=== PATIENT | male | born 1970 | race Caucasian/White ===

== ENCOUNTER 2024-04-07 12:28 | Emergency (ER) | payer OTHER, SELFPAY ==
--- NOTE | ~2024-04-07 | XR_ITS ---
EXAMINATION: XR WRIST, LEFT CLINICAL INFORMATION: Pain, injury COMPARISON: None available. TECHNIQUE: PA, lateral, and oblique views of the left wrist. FINDINGS: Acute or subacute, comminuted minimally impacted left distal radial metaphyseal fracture with probable intra-articular extension into the radiocarpal joint. Neutral lateral distal radial alignment. No evidence of dislocation. Mild widening of the scapholunate interval. Severe joint space narrowing with subchondral sclerosis, osteophytosis and cystic change about the first carpometacarpal joint, with adjacent heterotopic ossification or intra-articular bodies. Moderate diffuse wrist soft tissue swelling. XR/XR wrist LT min 3V IMPRESSION: 1. Acute or subacute, comminuted minimally impacted left distal radial metaphyseal fracture with probable intra-articular extension into the radiocarpal joint. 2. Mild widening of the scapholunate interval, may reflect underlying ligamentous injury. 3. Severe first carpometacarpal joint osteoarthritis. Electronically signed by: Jaleel Garcia MD 04/07/2024 03:08 PM EDT
[2024-04-07 12:47] VITALS: BP 143/97; PULSE 82; RESP 18; TEMP 36.3; O2SAT 97; BMI 29.7
--- NOTE | 2024-04-07 12:47 | ED.GENADULT ---
HPI - General Adult General Chief complaint: Extremity Injury, Upper Stated complaint: L wrist inj Time Seen by Provider: 04/07/24 14:52 Source: patient Mode of arrival: ambulatory Limitations: no limitations History of Present Illness ED Provider: Nanette Daigle PA-C HPI narrative: Patient is a 53 year old assigned male at with no reported medical history presenting to the emergency department today with left wrist pain. Patient states that yesterday while walking with a pallet tulio at work he tripped and fell backwards, using his left out stretched hand to catch himself. Patient denies any head strike, loss of consciousness, dizziness, lightheadedness, abdominal pain, nausea, vomiting, fever, chills, blurry vision, double vision, loss of vision, chest pain, difficulty breathing, shortness of breath, back pain, night sweats, pain with urination, increased urinary frequency, increased urinary urgency, blood in his urine or stool, syncope or a near syncopal episode, bowel incontinence, bladder incontinence, or any other complaints at this time. Onset (ago): day(s) (1) Location: left and upper extremity Severity: mild Relieving factors: none Exacerbating factors: none Associated symptoms: denies other symptoms Treatments prior to arrival: none Related Data Allergies Allergy/AdvReac Type Severity Reaction Status Date / Time clonazepam [CLONAZEPAM] Allergy Unknown UNK Verified 04/07/24 12:49 Review of Systems Constitutional: Constitutional: Reports no additional constitutional complaints, Denies chills, Denies fever(s) and Denies night sweats Eyes: Eyes: Reports no additional eye complaints, Denies blurry vision, Denies change in vision, Denies diplopia, Denies eye discharge, Denies loss of vision and Denies eye pain ENT: Denies dizziness Cardiovascular: Cardiovascular: Reports no additional cardiovascular complaints, Denies chest pain, Denies lightheadedness, Denies Loss of Consciousness and Denies dyspnea Respiratory: Respiratory: Reports no additional respiratory complaints and Denies dyspnea Gastrointestinal: Gastrointestinal: Reports no additional gastrointestinal complaints, Denies abdominal pain, Denies melena, Denies hematochezia, Denies change in bowel habits and Denies change in stool character Genitourinary: Genitourinary: Reports no additional male genitourinary complaints, Denies hematuria, Denies oliguria, Denies difficulty urinating, Denies dysuria, Denies urinary frequency, Denies urinary hesitancy, Denies urinary incontinence and Denies urinary urgency Musculoskeletal: Musculoskeletal: Reports no additional musculoskeletal complaints, Denies numbness and Denies tingling Comments: left wrist pain Neurologic: Denies dizziness, Denies loss of vision, Denies numbness and Denies tingling Psychiatric: Psychiatric: Reports no additional psychiatric complaints Endocrine: Endocrine: Reports no additional endocrine complaints Hematologic/Lymphatic: Hematologic/Lymphatic: Reports no additional hematologic/lymphatic complaints Allergic/Immunologic: Allergic/Immunologic: Reports no additional allergic/immunologic complaints [facility] Past Medical History Attestation statement: The following information was validated with the patient. Source: old records reviewed and nursing notes reviewed Social History Social History Advance Directives: No Advance Directives Information Provided: No Physical Exam ED Vital Signs: Vital Signs - 24 hr 04/07/24 12:47 04/07/24 15:01 04/07/24 15:36 Temperature 97.3 F 97.8 F 97.8 F Pulse Rate 82 74 74 Respiratory Rate 18 18 18 Blood Pressure 143/97 H 138/97 H 138/97 H Pulse Oximetry 97 99 99 Oxygen Delivery Method Room Air Room Air Room Air BMI result Body Mass Index 29.7 Const General: cooperative, no acute distress, alert and awake Nutritional Appearance: well nourished Orientation/consciousness: patient oriented x3 Limitations: no limitations HENMT Head: Yes normal to inspection and Yes atraumatic Ears: hearing grossly normal bilaterally and external ears normal General nose exam: Normal external nose present, no nasal discharge noted and no epistaxis Face and sinus: Yes normal facial exam, No abrasion and No laceration Mouth: Normal oral and palatal mucosa present, no drooling and no muffled voice Eyes General: appearance normal, both eyes and all related structures Periorbital: periorbital findings normal Eyelids: Yes eyelids normal Conjunctivae: conjunctivae normal Pupils: Equal, round and reactive pupils present EOM: EOMs intact bilaterally Neck Neck: Yes normal visual inspection, Yes full ROM and Yes no lymphadenopathy Chest Chest palpation & inspection: normal inspection of the chest Resp Effort & Inspection: normal respiratory effort and able to speak in complete sentences GI Inspection: Yes normal to inspection Neuro General: patient oriented x3 and moves all extremities Cranial nerves: Yes Equal, round and reactive pupils present Cognition (Neuro): normal cognition Extrem Other: pain with left wrist ROM left wrist swelling General: Yes capillary refill normal Psych Appearance: grossly normal Mental Status: mental status grossly normal Affect: normal affect Attitude: cooperative Thought process: Normal thought process present Thought content: Normal thought content present Insight: Good insight present (Psych) Course Course Course Narrative: RME performed by Nanette Daigle PA-C. Patient is a 53 year old assigned male at presenting to the emergency department with left wrist pain. Patient states he fell backwards while pulling a pallet tulio and braced himself with an outstretched left wrist. Detailed physical exam and review of systems are deferred to the solder making supervisor. Imaging ordered. Patient placed back in the waiting room pending room availability and results. Procedures Orthopedic Splinting/Casting Injury #1: Side: left Upper Extremity Injury Location: wrist Upper Extremity Immobilizer: sling/shoulder immobilizer and sugar tong splint Medical Decision Making Medical Decision Making MDM Narrative: Patient is a 53 year old assigned male at with no reported medical history presenting to the emergency department today with left wrist pain. Patient's physical exam was as noted in the physical exam portion of this note. Patient's left wrist x-ray showed an acute comminuted minimally impacted left distal radial metaphyseal fracture with probable intra-articular extension into the radiocarpal joint. I placed the patient in a sugar tong splint, without incident. Patient's PMS was intact prior to and after splint placement. Patient's splinted arm was placed in a sling for ease of ambulation without incident. I spoke to the orthopedic team who agreed with management and urgent outpatient follow up. I explained my physical exam findings as well as all test results to the patient. I answered all questions asked by the patient. I stressed the importance of the patient taking his medication as directed (either prescribed or as the over the counter packaging recommends). I stressed the importance of the patient following up with his primary care provider, the orthopedic provider, and work connection. I stressed the importance of the patient returning to the emergency department immediately if his symptoms were to worsen or if he were to develop any dizziness, shortness of breath, difficulty breathing, chest pain, blurry vision, loss of vision, nausea, vomiting, abdominal pain, fever, chills, back pain, or any other complaints. Patient verbalized agreement and understanding with this treatment plan and discharge. Differential Diagnosis Differential Diagnoses: The differential diagnosis associated with the presentation includes Wrist fracture Wrist sprain Wrist strain Admission/Observation Consideration of admission/observation: Escalation of care including admission/observation considered Patient would have been admitted to the hospital had his work up had any findings where hospital admission was appropriate and his clinical presentation warranted hospital admission. Consult Healthcare Provider Management of the patient was discussed with: Director Process (spoke to the orthopedic team as noted in the MDM Rationale portion of this note.) Independent Interpretation I performed an independent interpretation of an: Plain X-Ray Interpretation: My interpretation is in agreement with the radiologist's impression of this imaging study. EXAMINATION: XR WRIST, LEFT CLINICAL INFORMATION: Pain, injury COMPARISON: None available. TECHNIQUE: PA, lateral, and oblique views of the left wrist. FINDINGS: Acute or subacute, comminuted minimally impacted left distal radial metaphyseal fracture with probable intra-articular extension into the radiocarpal joint. Neutral lateral distal radial alignment. No evidence of dislocation. Mild widening of the scapholunate interval. Severe joint space narrowing with subchondral sclerosis, osteophytosis and cystic change about the first carpometacarpal joint, with adjacent heterotopic ossification or intra-articular bodies. Moderate diffuse wrist soft tissue swelling. XR/XR wrist LT min 3V IMPRESSION: 1. Acute or subacute, comminuted minimally impacted left distal radial metaphyseal fracture with probable intra-articular extension into the radiocarpal joint. 2. Mild widening of the scapholunate interval, may reflect underlying ligamentous injury. 3. Severe first carpometacarpal joint osteoarthritis. Electronically signed by: Jaleel Garcia MD 04/07/2024 03:08 PM EDT Dictated By: Jaleel Garcia MD Signed By: Electronically signed by Jaleel Garcia MD 04/07/24 6123 Radiology Impression Discussion of test interpretation with radiology: I have reviewed the radiologist's reading. Discharge Plan Discharge Clinical Impression: Fracture of wrist Patient Disposition: Home, Self-Care Instructions: Wrist Fracture in Adults (ED) Additional Instructions: Do NOT get the splint wet. Do NOT remove the splint. If the sensation in your fingers changes (numbness, tingling, cold, warm), you may loosen the outer JAZZ wraps. If you find yourself loosening the JAZZ wraps to the point of seeing the white portions of the splint - STOP and return to the ER. Follow up with your primary care provider and an orthopedic provider. Given this is a work place injury, you should follow up with work connection. Return to the emergency department immediately if your symptoms worsen or if you develop any dizziness, shortness of breath, difficulty breathing, chest pain, blurry vision, loss of vision, nausea, vomiting, abdominal pain, fever, chills, back pain, or any other complaints. Referrals: [facility] [Provider Group] (Call to establish and follow up with a primary care provider. If you already have a primary care provider, please follow up with them.) [facility] [Provider Group] (Call to establish and follow up with a primary care provider. If you already have a primary care provider, please follow up with them.) [facility] [Provider Group] (Call to establish and follow up with a primary care provider. If you already have a primary care provider, please follow up with them.) [facility] [Provider Group] (Call to establish and follow up with an orthopedic provider. ) [facility] [Provider Group] (Given this was a work place injury, please be sure to follow up with work connection. ) Stand Alone Forms: Work/School Release Interventions: ED Discharge Assessment Last Done: 04/07/24 15:36 Discharge Date/Time: 04/07/24 15:37 Print Language: Indian
[2024-04-07 15:01] VITALS: BP 138/97; PULSE 74; RESP 18; TEMP 36.6; O2SAT 99
[2024-04-07 15:36] VITALS: BP 138/97; PULSE 74; RESP 18; TEMP 36.6; O2SAT 99
== END 2024-04-07 15:37 | disposition home or self-care (01) ==
LOC: HO.ED 15:35
PROVIDERS: Emergency Provider Emergency Medicine Emergency Medical Services
DX: S52.572A Other intraarticular fracture of lower end of left radius, initial encounter for closed fracture (principal); W01.0XXA Fall on same level from slipping, tripping and stumbling without subsequent striking against object, initial encounter; Y93.89 Activity, other specified; Y92.9 Unspecified place or not applicable; Y99.9 Unspecified external cause status
CPT/HCPCS: 29125; 73110; 99283

== ENCOUNTER 2024-04-10 14:48 | Outpatient (REF) | payer OTHER, SELFPAY ==
--- NOTE | ~2024-04-10 | XR_ITS ---
EXAMINATION: XR WRIST, LEFT CLINICAL INFORMATION: Pain in the left wrist COMPARISON: X-rays of the left wrist April 07, 2024. TECHNIQUE: PA, lateral, and oblique views of the left wrist. FINDINGS: Mildly displaced distal radius fracture with intra-articular extension unchanged in appearance and alignment. Severe osteoarthritis of the 1st carpometacarpal joint unchanged. Large osseous fragment noted adjacent to the radial aspect of the joint compatible with loose body or fractured osteophyte. Remaining bones joints and soft tissues unremarkable. XR/XR wrist LT w scaphoid IMPRESSION: 1. Distal radius fracture unchanged in appearance and alignment. 2. Severe osteoarthritis of the 1st carpometacarpal joint unchanged. Electronically signed by: Romeo Schwarz MD 04/25/2024 07:23 AM EDT
== END 2024-04-10 14:49 | disposition home or self-care (01) ==
LOC: HO.HOSX 14:48
PROVIDERS: Visit Provider Orthopaedic Surgery
DX: M25.532 Pain in left wrist (principal); S52.502A Unspecified fracture of the lower end of left radius, initial encounter for closed fracture; R20.0 Anesthesia of skin; R20.2 Paresthesia of skin
CPT/HCPCS: 73110; 99202

== ENCOUNTER 2024-04-10 15:22 | Outpatient (AMB) | payer OTHER, SELFPAY ==
--- NOTE | 2024-04-10 15:48 | MHC.OFFVIS ---
Vital Signs 04/10/24 15:50 Height 5 ft 5 in Weight 178 lb 5 oz BMI 29.7 Intake Visit Reasons: FC-Left wrist facture Intake Note: Miguel is a 53 year old right hand dominant male who presents today for a Worker's Compensation related ED evaluation s/p left distal radial metaphyseal fracture, DOI 04/06/24. Patient states while walking with a pallet tulio at work he tripped and fell backwards, using his left outstretched hand to catch himself. Patient denies numbness, tingling, and locking on fingers. Patient describes pain as crampy . Reports taking Motrin for pain with some relief. Denies prior injuries or surgeries to the left hand. Patient dropped off a form to be filled out. He reports [employer], one of his employers, is able to accommodate light duty. Allergies clonazepam [CLONAZEPAM] Allergy (Unknown, Verified 04/10/24 15:51) UNK HPI HPI FC-Left wrist facture: Details: Miguel is a 53 year old right hand dominant man who presents for a left distal radius fracture, S/P trip & fall while at work, DOI: 04/06/24. He was seen in the ED on 04/07/24 and placed in a sugar-tong splint with sling. This is a work-place injury. He says he is doing fair, with some pain in his wrist. he manages his pain with Motrin. He also complains of some intermittent numbness in his thumb, index, and middle fingers, which was not present prior to his injury He works at [employer]. He says [employer] can accommodate light duty if needed. He denies any other health concerns. 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 [employer] Review of Systems Const All systems reviewed & are unremarkable except as noted in HPI and below Physical Exam Vital Signs: BMI result Body Mass Index 29.7 Const General: cooperative, healthy appearing and no acute distress Orientation/consciousness: patient oriented x3 HEENT Head: Yes normocephalic and Yes atraumatic Eyes EOM: EOMs intact bilaterally Resp Effort & Inspection: normal respiratory effort and able to speak in complete sentences Cardio Jugular venous distension: no JVD Skin General skin exam: turgor normal Rashes: no rashes Neuro General: patient oriented x3 Extrem Other: Evaluation of Left Upper Extremity: The patient is alert, oriented, and in no acute distress Neuro: Median, Ulnar, Radial nerves motor and sensory intact and sensation is normal to the tips of all digits today in clinic. He has intermittent numbness in the median nerve distribution depending on the position of his hand & wrist today in clinic Vascular: Cap refill brisk ROM: He can weakly bring his fingers closed to a fist and back into extension He does have tenderness and swelling about the distal radius. No pain with elbow ROM No elbow tenderness No tenderness with proximal forearm squeeze No tenderness along the length of the ulna Skin: No lacerations or abrasions. General: Swelling & ecchymosis about the wrist Radiographs: 3 views of the left wrist, plus a scaphoid view, were taken and viewed by me today in clinic. they show a distal radius fracture with comminution. There is a transverse metaphyseal component and then there is a longitudinal fracture line extending to the articular surface best seen on the lateral view, also seen on the oblique view. He is at 12 degrees of dorsal tilt on the lateral view. There is also some widening of the scapholunate interval. He also has severe basal joint osteoarthritis with joint space narrowing, osteophyte formation, and subchondral sclerosis. Psych Appearance: grossly normal Affect: normal affect Attitude: cooperative Assessment & Plan Assessment & Plan (1) Fracture of left distal radius: Code(s): S52.502A - Unspecified fracture of the lower end of left radius, initial encounter for closed fracture Category: Medical (2) Numbness and tingling in left hand: Code(s): R20.0 - Anesthesia of skin; R20.2 - Paresthesia of skin Category: Medical Plan Assessment & Plan: 1. Left distal radius fracture, comminuted an intra articular With a transverse metaphyseal component and a longitudinal fracture line extending to the articular surface, with ~12 degrees dorsal tilt seen on lateral view From a fall, DOI: 04/06/24 This is a workplace injury 2. Left hand numbness In the median nerve distribution Symptoms intermittent but daily, since his fall on 04/06/24 I educated him about this condition I discussed operative and non-operative treatment options I recommend surgery, and he is in agreement He was fitted for a fiberglass splint today to wear like a cast until his DOS, and I explained the importance of maintaining his left wrist at or above heart level He was given a note for work to remain out of work at this time. The risks and benefits of operative treatment were discussed with the patient and the patient wishes to proceed with surgery. These risks include, but are not limited to risk of damage to blood vessels, nerves, tendons, infection, recurrence, incomplete relief of preoperative symptoms, persistent pain, possible need for further surgery and the risks associated with regional blocks and anesthesia. The plan is to take the patient to the operating room sometime on 04/12/24 for the following procedures: 1. Left distal radius ORIF, under general 2. Left carpal tunnel release, under general All of the preoperative paperwork including the consent was reviewed today. All the patient's questions were answered. The patient understands that they will be contacted by our rn outpatient surgery soon to schedule this procedure He denies Diabetes, blood thinners, asthma, heart, lung, kidney issues Please note that greater than 30 minutes was spent with this patient going over the history, evaluating the patient and radiographs, formulating possible treatment options, discussing them with the patient, and documenting the visit. Scribed for Winnie Guzmán MD by Sebastian Silva, medical fee clerk, on 04/10/24 at 4:15 PM, EST. Orders: Orders XR wrist LT w scaphoid Today M25.532 - Pain in left wrist Coding Level of Care Code New Pt Level 4 (87944) Diagnoses Fracture of left distal radius S52.502A Numbness and tingling in left hand R20.0; R20.2
[2024-04-10 15:50] VITALS: BMI 29.7
== END 2024-04-10 16:54 | disposition home or self-care (01) ==
PROVIDERS: Visit Provider Orthopaedic Surgery
DX: S52.502A Unspecified fracture of the lower end of left radius, initial encounter for closed fracture (principal); Z04.2 Encounter for examination and observation following work accident
CPT/HCPCS: 99204

== ENCOUNTER 2024-04-12 05:36 | Day surgery (SDC) | payer OTHER, SELFPAY ==
--- NOTE | 2024-04-11 13:41 | HO.ANESPROP2 ---
Documented by User: Jennifer Samuels NP 04/11/24 13:41 HPI - Anesthesia Eval Consult details Narrative: 53yo M for Left Radius Distal Fracture ORIF, Carpal Tunnel Release PMFSH Active Problems Active Problems: All Active Problems Numbness and tingling in left hand (Acute) Fracture of left distal radius (Acute) Social History Social History Patient Tobacco Use Status: Current everyday Tobacco user Tobacco use type: Cigarette Cigarettes Per Day: 3 Use of substances other than those prescribed or required for medical reasons: No Are you DNR?: No Advance Directives: No Advance Directives Information Provided: Yes Advance Directives on File: No Recently lost weight without trying: No Nutrition Risks: No Nutritional Risk Poor oral hygiene: No Current occupational status: employed 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 Meds Allergies Allergy/AdvReac Type Severity Reaction Status Date / Time clonazepam [CLONAZEPAM] Allergy Unknown UNK Verified 04/10/24 15:51 Home Medications ?Medication ?Instructions ?Recorded ?Confirmed ?Last Taken ?Type hydroxyzine pamoate 25 mg capsule 25 - 50 mg PO BID PRN panic attack 04/10/24 Unknown History Assessment and Plan Assessment Anesthesia Assessment: Chart Reviewed Documented by User: Mary Prado MD 04/12/24 09:49 PMFSH Active Problems Active Problems: All Active Problems Numbness and tingling in left hand (Acute) Fracture of left distal radius (Acute) H/o ETOH/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 Smoker Family History Family history of problems with anesthesia: No Surgical History History of Problems with Anesthesia: No Social History Social History Patient Tobacco Use Status: Current everyday Tobacco user Tobacco use type: Cigarette Cigarettes Per Day: 3 Use of substances other than those prescribed or required for medical reasons: No Are you DNR?: No Advance Directives: No Advance Directives Information Provided: Yes Advance Directives on File: No Recently lost weight without trying: No Nutrition Risks: No Nutritional Risk Poor oral hygiene: No Current occupational status: employed Current occupation: rt handed, cantu and sales service coordinator Meds Allergies Allergy/AdvReac Type Severity Reaction Status Date / Time clonazepam [CLONAZEPAM] Allergy Unknown UNK Verified 04/10/24 15:51 Home Medications ?Medication ?Instructions ?Recorded ?Confirmed ?Last Taken ?Type hydroxyzine pamoate 25 mg capsule 25 - 50 mg PO BID PRN panic attack 04/10/24 Unknown History Exam Height,Weight and Vital Signs: Height 5 ft 6 in Weight 79.832 kg Vital Signs Temp Pulse Resp BP Pulse Ox O2 Del Method 04/12/24 06:38 97.9 F 81 16 115/76 97 Room Air Airway Mallampati Class: II TM Dist: >3cm Neck ROM: Full Loose/Missing/Broken Teeth: Yes (Many broken, some missing teeth. Denies loose teeth) Heart: RRR Lungs: CTAB Assessment and Plan Assessment Anesthesia Assessment: Anesthesia Plan Discussed and Chart Reviewed Final Anesthetic Review Family History of Problems with Anesthesia: No History of Problems with Anesthesia: No NPO: Yes ASA Class: II Final Preanesthetic Review: No Changes in Pt Med Stat, Meds/Allgs Chart Reviewed, Consent Obtained/Reviewed and Anes Risks/Benef Reviewed Patient Risk: Low Procedure Risk: Low Assessment/Block/Sedation in SS: Assess/Block/Sedation-SS Anesthetic Plan Anesthetic Plan: GA and Regional Block (Left brachial plexus block) Disposition: Standard PACU
--- NOTE | ~2024-04-12 | FL_ITS ---
EXAMINATION: FLUOROSCOPY GUIDANCE FOR NEEDLE PLACEMENT CLINICAL INFORMATION: ORIF left distal radius. COMPARISON: None available. TECHNIQUE: 4 images and fluoroscopy were provided to Dr. Winnie Guzmán. FINDINGS: 4 images demonstrate distal radial ORIF. FLUOROSCOPY TIME: 26.88 seconds. DOSE AREA PRODUCT: 0.9450 mGy. FL/FL guidance in OR IMPRESSION: Fluoroscopic guidance provided during distal radial ORIF. Electronically signed by: Eren Arredondo MD 04/12/2024 04:16 PM EDT
[2024-04-12 06:36] VITALS: BMI 28.4
[2024-04-12 06:38] VITALS: BP 115/76; PULSE 81; RESP 16; TEMP 36.6; O2SAT 97
[2024-04-12] MEDS: Lactated Ringers 1,000 ML 100 ML IVCONT (06:49)
--- NOTE | 2024-04-12 07:37 | MHC.SHP ---
Pre-Procedural Eval Section A - 24 Hr Update-Section A only Date of Service: 04/12/24 The patient is an INPATIENT: No Changes since office visit: No Cold of Flu in the past 2 weeks, No New Medical Problems, No Changes in Medication and No Patient answered all questions The patient has been examined within 24 hours of the surgical procedure. The History & Physical has been completed within 30 days and I have reviewed it.: Yes Section B - Complete if H&P > 30 days Chief Complaint: fx lower end of radius,carpal tunnel Allergies: Allergies Allergy/AdvReac Type Severity Reaction Status Date / Time clonazepam [CLONAZEPAM] Allergy Unknown UNK Verified 04/10/24 15:51 Plan I have reviewed the history and physical and performed a pertinent physical examination on my patient. No changes have occurred unless specified. Time Spent With Patient Time: Total time managing care of this patient today ____ minutes.
--- NOTE | 2024-04-12 07:38 | W.PM.OPN ---
Operative Note Operative Note Date of Service: 04/12/24 Narrative: Operative Note Narrative: Preop diagnosis: 1. Left Distal radius fracture 2. Left carpal tunnel syndrome Postop diagnosis: Same Procedure: 1. Left Distal radius fracture open reduction internal fixation, extra-articular 2. Left carpal tunnel release Surgeon: Winnie Guzmán MD [employer] Supervisor: Emanuel CHANG Anesthesia: General anesthesia plus regional block Findings: Left distal radius fracture Implants: A 3 hole Accu Med volar locking plate, with 5 X 2.3 mm locking pegs/screws, and 3 3.5 mm cortical screws Tourniquet time: 71 minutes EBL: 5.0 ml Specimen: None Drains: None Complications: None Disposition: Brought to the recovery room in stable condition Plan: Follow-up in 10-14 days for wound check, suture removal and postop radiographs The patient will be placed in either a short-arm cast or a volar wrist splint. Encouraged no lifting of anything heavier than a cell phone. Please encourage active and passive range of motion of the digits. Follow-up at 4-5 weeks postop for repeat radiographs. Indications: The patient is a 53 year old man with left distal radius fracture with carpal tunnel syndrome . The risks and benefits of operative treatment, including but not limited to risk of damage to blood vessels, nerves, tendons, infection, recurrence, persistent pain or numbness, incomplete resolution of preoperative symptoms, or need for further surgery were discussed with the patient and they wished to proceed with surgery. Procedure: Once consent was obtained patient was brought back to the operating suite and placed in the operating table in a supine position. A regional block was performed by the anesthesia team. Perioperative antibiotics and anesthesia was administered by the anesthesia team. A tourniquet was applied to the proximal aspect of the left upper extremity and the limb was prepped and draped in a standard surgical fashion. The limb was elevated exsanguinated with Esmarch bandage and the tourniquet inflated to 250 mm of mercury for a total tourniquet time of 71 minutes. The FluoroScan was used throughout the case to assess our reduction, and facilitate implant placement. A gentle closed reduction was 1st performed on the patient's left distal radius fracture. Was assessed radiographically before proceeding with the reduction internal fixation. I then made an 8 cm longitudinal incision over the distal aspect of the flexor carpi radialis tendon. The incision was made through the skin to the subcutaneous tissue using a 15. Blade. Then carefully dissected down to flexor carpi radialis tendon she tenotomy scissors. The FCR tendon sheath was then incised longitudinally using tenotomy scissors under direct visualization. The FCR tendon was then retracted ulnarly. I then made a longitudinal incision in the volar forearm fascia through the floor of FCR tendon sheath using tenotomy scissors under direct visualization. I identified the interval between the radial artery and the flexor tendons. This interval was developed further with my index finger, releasing some of the muscular fibers of the flexor pollicis longus. A dull weatlander retractor was then placed. I then created an ulnarly based flap of the pronator quadratus by releasing the radial and distal edges using a 15. Blade. A Rizzo elevator was used to elevate the pronator quadratus from the volar surface of the distal radius. This then revealed to us our distal radius fracture. An open reduction was then performed on our distal radius fracture. I then placed a short narrow 3 hole Accu Med volar locking plate on the volar surface of the distal radius. I placed a single K-wire through the distal aspect of the plate and into the distal radius. This was assessed using fluoroscopic images. I was satisfied with the placement of our plate. I then placed 5 X 2.3 mm locking screws/pegs in the distal aspect of the plate and distal radius by 1st drilling bicortically with a 1.8 mm drill bit, measuring with a depth gauge, and placing the appropriate length locking screws/pegs. The placement of our plate and screws was then assessed again using fluoroscopic images. The once satisfied with the placement of the volar locking plate and screws on the distal aspect of the distal radius, the plate was then reduced to the shaft of the radius. I then placed 3 3.5 mm cortical screws to the proximal aspect of the plate and into the shaft of the radius. This was done by 1st drilling bicortically with a 2.8 mm drill bit, measuring with a depth gauge, and placing the appropriate length screw. Final radiographs were then obtained. The DRUJ was assessed and found to be stable on exam. I was satisfied with our reduction and placement of all implants. At this point the wound was irrigated with normal saline. The pronator quadratus was reduced back over the volar locking plate using some 3-0 Vicryl suture material. The tourniquet was then deflated and hemostasis was obtained with a brief period of local pressure and bipolar monopolar electrocautery. The subcutaneous layer was then reapproximated using some 4-0 Vicryl suture, and the skin edges were reapproximated using some 5 0 Prolene suture. The wound was then infiltrated with some 1% lidocaine with epinephrine postop pain control. A sterile dressing and a short dorsal splint allowing for active flexion and extension of the digits was applied. The patient appears to have tolerated the procedure well and with no complications. All digits were well vascularized conclusion of the case.
[2024-04-12 10:15] VITALS: BP 125/80; PULSE 87; RESP 18; TEMP 36.2; O2SAT 98
[2024-04-12 10:20] VITALS: BP 128/85; PULSE 91; RESP 18; O2SAT 97
[2024-04-12 10:25] VITALS: BP 133/88; PULSE 86; RESP 18; O2SAT 97
[2024-04-12 10:30] VITALS: BP 128/96; PULSE 99; RESP 18; O2SAT 98
[2024-04-12 10:45] VITALS: BP 138/95; PULSE 80; RESP 18; O2SAT 98
== END 2024-04-12 11:34 | disposition home or self-care (01) ==
PROVIDERS: Visit Provider Orthopaedic Surgery
PROC: (CPT 25607; principal; 2024-04-12 07:30)
PROC: (CPT 64721; 2024-04-12 07:30)
DX: S52.502A Unspecified fracture of the lower end of left radius, initial encounter for closed fracture (principal); M25.532 Pain in left wrist; W01.0XXA Fall on same level from slipping, tripping and stumbling without subsequent striking against object, initial encounter; Y93.89 Activity, other specified; Y92.69 Other specified industrial and construction area as the place of occurrence of the external cause; Y99.0 Civilian activity done for income or pay; G56.02 Carpal tunnel syndrome, left upper limb; R20.0 Anesthesia of skin; Z79.899 Other long term (current) drug therapy; Z88.8 Allergy status to other drugs, medicaments and biological substances; F17.210 Nicotine dependence, cigarettes, uncomplicated
CPT/HCPCS: 25607; 64721; C1713; J0131; J0330; J0665; J0690; J1100; J1596; J2250; J2405; J2704; J2795; J3010

== ENCOUNTER → 2024-04-12 05:36 | Outpatient (BNV) | payer OTHER, SELFPAY | PROVIDERS: Visit Provider Orthopaedic Surgery | DX: S52.502A Unspecified fracture of the lower end of left radius, initial encounter for closed fracture (principal); G56.02 Carpal tunnel syndrome, left upper limb | CPT/HCPCS: 25607; 64721 ==

== ENCOUNTER 2024-04-25 14:00 | Outpatient (REF) | payer OTHER, SELFPAY ==
--- NOTE | ~2024-04-25 | XR_ITS ---
EXAMINATION: XR WRIST, LEFT CLINICAL INFORMATION: M25.532 - Pain in left wrist COMPARISON: 04/10/2024, 04/07/2024. TECHNIQUE: Four views of the left wrist. FINDINGS: Redemonstration of comminuted distal radial intra-articular fracture, which has been fixated with plate and screws involving the radial volar aspect. Hardware appears well seated in anatomical alignment without complication or loosening. Anatomic alignment of the fracture has been restored with reduction in previously seen mild dorsal angulation. No articular step-off is noted. Fracture lines appear mildly blunted and sclerotic, indicating healing. Severe erosive arthritic changes present at the first CMC joint, with moderate arthritic changes at the STT joints. Soft tissue swelling has improved. XR/XR wrist LT w scaphoid IMPRESSION: 1. Fixated comminuted distal radial intra-articular fracture, with mormonism of anatomic alignment, with no complication seen. 2. Severe erosive arthrosis first CMC joint. 3. Mildly improved soft tissue swelling. Electronically signed by: Alexandre Esquivel MD 07/03/2024 10:25 AM DEB
== END 2024-04-25 14:01 | disposition home or self-care (01) ==
LOC: HO.HOSX 14:00
DX: M25.532 Pain in left wrist (principal); S52.502A Unspecified fracture of the lower end of left radius, initial encounter for closed fracture; R20.0 Anesthesia of skin; R20.2 Paresthesia of skin
CPT/HCPCS: 73110; 99212

== ENCOUNTER → 2024-04-25 14:04 | Outpatient (BNV) | payer OTHER, SELFPAY | PROVIDERS: Visit Provider Radiology Diagnostic Radiology | DX: S52.572A Other intraarticular fracture of lower end of left radius, initial encounter for closed fracture (principal) | CPT/HCPCS: 73110 ==

== ENCOUNTER 2024-04-25 14:31 | Outpatient (AMB) | payer OTHER, SELFPAY ==
--- NOTE | 2024-04-25 14:34 | A.OFFVIS_ITS ---
Vital Signs 04/25/24 14:42 Height 5 ft 5 in Weight 170 lb BMI 28.3 Handedness Ambidextrous Intake Visit Reasons: PO LT distal radius/CTR 04/12/24 AR Intake Note: Miguel is a 53 year old ambidextrous male who presents today post operatively s/p Left Distal radius ORIF & Left carpal tunnel release, DOS: 04/12/24 w/ Dr Guzmán. Patient reports he hasn't been able to move his left hand much so he has not noticed much pain. He says his finger fell a bit stiff. He has mild tingling in all his digits in left hand that comes and goes. He reports his arm wakes him up in the morning due to pain so he takes Motrin at that time and before dinner, this provides relief. Patient needs work note. He is asking about work status and restrictions. Allergies clonazepam [CLONAZEPAM] Allergy (Unknown, Verified 04/25/24 14:43) UNK HPI HPI PO LT distal radius/CTR 04/12/24 AR: Details: Patient is a 53-year-old male who presents for postoperative evaluation status post left distal radius ORIF and carpal tunnel release, DOS 04/12/2024. Today, the patient reports that he is feeling well, it is not experiencing any pain at this time. The patient also reports that the numbness and tingling in his left hand has completely resolved. Of note, the patient reports that when he was getting x-rays and he saw the incision site when the cast was removed, he began to feel lightheaded, so he was brought over in a wheelchair. The patient reports that he is able to make a closed fist without difficulty. Patient has no other acute complaints or concerns at this time. 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 Neuro: Normal sensation of the tips of all digits of the left hand at this time Vascular: Cap refill brisk Pain: Patient reports no tenderness to palpation about the left wrist or hand ROM: Patient is able to make a closed fist and extend all digits of the left hand without difficulty Skin: Well approximated and well healing incision site noted on the volar aspect of the left wrist No evidence of infection General: No ecchymosis, erythema, or evidence of infection. Psych: Appears grossly normal Affect normal Attitude cooperative Results Reviewed Results Reviewed: X-rays obtained in the office today and independently reviewed by me, Emanuel Antony PA-C, demonstrate well approximated fracture of the left distal radius with orthopedic hardware in place and in satisfactory clinical alignment. Assessment & Plan Assessment & Plan (1) Numbness and tingling in left hand: Code(s): R20.0 - Anesthesia of skin; R20.2 - Paresthesia of skin Category: Medical (2) Fracture of left distal radius: Code(s): S52.502A - Unspecified fracture of the lower end of left radius, initial encounter for closed fracture Category: Medical Plan 1. Left distal radius fracture status post open reduction internal fixation 2. Left carpal tunnel syndrome status post carpal tunnel release DOS 04/12/2024 Patient appears to be recovering well postoperatively Patient is educated about the typical recovery course At this time, placed in a short-arm cast to allow for healing of the L distal radius Patient is educated on proper cast care and precautions Sutures removed, Steri-Strips applied Patient will be on light duty at work with a strict 2 lb weight restriction in his left hand for at least a further 2 weeks, likely longer Patient is amenable to this plan Patient will follow-up in 2 weeks with repeat x-rays, sooner with any acute concerns Orders: Orders XR wrist LT w scaphoid Today M25.532 - Pain in left wrist Coding Level of Care Code Global (84199) Diagnoses Numbness and tingling in left hand R20.0; R20.2 Fracture of left distal radius S52.502A
[2024-04-25 14:42] VITALS: BMI 28.3
== END 2024-04-25 15:45 | disposition home or self-care (01) ==
LOC: HO.HOS 14:31
DX: R20.0 Anesthesia of skin (principal); R20.2 Paresthesia of skin; S52.502A Unspecified fracture of the lower end of left radius, initial encounter for closed fracture
CPT/HCPCS: 99024

== ENCOUNTER 2024-05-09 10:39 | Outpatient (REF) | payer OTHER, SELFPAY ==
--- NOTE | ~2024-05-09 | XR_ITS ---
EXAMINATION: XR WRIST, LEFT CLINICAL INFORMATION: M25.532 - Pain in left wrist COMPARISON: None available. TECHNIQUE: PA, lateral, and oblique views of the left wrist. FINDINGS: Redemonstration of comminuted distal radial intra-articular fracture, which has been fixated with plate and screws involving the radial volar aspect. Hardware appears well seated in anatomical alignment without complication or loosening. Anatomic alignment of the fracture remains. No articular step-off is noted. Fracture lines are still seen but appear continually mildly blunted and sclerotic, indicating healing. Severe erosive arthritic changes present at the first CMC joint, with moderate arthritic changes at the STT joints. Soft tissue swelling has improved. XR/XR wrist LT min 3V IMPRESSION: 1. Fixated comminuted distal radial intra-articular fracture, with catholic of anatomic alignment, with no complication seen. Continued interval subtle findings of healing. 2. Severe erosive arthrosis first CMC joint. 3. Resolution of soft tissue swelling. Electronically signed by: Alexandre Esquivel MD 07/03/2024 10:32 AM DEB
== END 2024-05-09 10:40 | disposition home or self-care (01) ==
LOC: HO.HOSX 10:39
DX: M25.532 Pain in left wrist (principal); S52.502D Unspecified fracture of the lower end of left radius, subsequent encounter for closed fracture with routine healing; Z98.890 Other specified postprocedural states
CPT/HCPCS: 73110; 99212

== ENCOUNTER 2024-05-09 14:26 | Outpatient (AMB) | payer OTHER, SELFPAY ==
--- NOTE | 2024-05-09 15:03 | MHC.OFFVIS ---
Vital Signs 05/09/24 15:06 Height 5 ft 5 in Weight 170 lb BMI 28.3 Handedness Ambidextrous Intake Visit Reasons: PO LT distal radius/CTR 04/12/24 AR-w/xray Intake Note: Miguel is a 53 year old ambidextrous male who presents today post operatively s/p Left Distal radius ORIF & Left carpal tunnel release, DOS: 04/12/24 w/ Dr Guzmán. Patient reports he has mild numbness around the base of his thumb. He expresses his left wrist feels tight. He denies pain at this time of his visit. Allergies clonazepam [CLONAZEPAM] Allergy (Unknown, Verified 05/09/24 15:05) UNK HPI HPI PO LT distal radius/CTR 04/12/24 AR-w/xray: Details: Patient is a 54-year-old male who presents for postoperative evaluation status post left distal radius ORIF and carpal tunnel release, DOS 04/12/[address] Guzmán. Today, the patient reports he is feeling well, and is not experiencing any pain at baseline. However, the patient does report that he has attempted gentle range of motion with his left wrist since being out of the cast in the office today, and states that he is very tight in his left wrist with both flexion and extension. Patient reports that he does still have some numbness and tingling on the radial aspect of the wrist moving up towards the base of the thumb, but does not have any numbness or tingling in the digits of the left hand. No other acute complaints or concerns at this time. [facility] Social History Patient Tobacco Use Status: Current everyday Tobacco user Tobacco use type: Cigarette Cigarettes Per Day: 3 Current occupational status: employed Current occupation: rt handed, [employer] and solar energy sales specialist Review of Systems Const All systems reviewed & are unremarkable except as noted in HPI and below Physical Exam Vital Signs: BMI result Body Mass Index 28.3 Extrem Other: Patient is alert, oriented, and in no acute distress. Neuro: Normal sensation of the tips of all digits of the left hand at this time Vascular: Cap refill brisk Pain: Patient reports no tenderness to palpation about the left wrist or hand ROM: Patient is able to make a closed fist and extend all digits of the left hand without difficulty However, gentle flexion extension left wrist are both significantly limited due to stiffness Skin: Well approximated and well healing incision site noted on the volar aspect of the left wrist No evidence of infection General: No ecchymosis, erythema, or evidence of infection. Psych: Appears grossly normal Affect normal Attitude cooperative Results Reviewed Results Reviewed: X-rays obtained in the office today and independently reviewed by me, Emanuel Antony PA-C, demonstrate well approximated fracture of the left distal radius with orthopedic hardware in place and in satisfactory clinical alignment. Assessment & Plan Assessment & Plan (1) Fracture of left distal radius: Code(s): S52.502A - Unspecified fracture of the lower end of left radius, initial encounter for closed fracture Category: Medical Plan 1. Left distal radius fracture status post ORIF DOS 04/12/2024 Patient appears to be recovering well postoperatively Patient is educated about the typical recovery course At this time, patient was removed from a cast and placed into a Velcro wrist splint to be worn with daytime activities Patient is advised that when he is at home or resting, he should be out of the splint for most of the time and working on gentle range of motion of the left wrist and hand Patient is informed that he may have damaged some of the superficial nerves of the left wrist with his injury ordering surgery, and that this numbness he is experiencing in his wrist at the base of the thumb may be permanent, but there is no acute intervention indicated Patient is advised that 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 as long as he can adhere to a strict 2 lb weight limit and keep his Velcro wrist splint on at all times Patient is also referred to occupational hand therapy to work on gentle range of motion of the left wrist to improve his stiffness Patient was amenable to this plan Patient will follow-up in 4 weeks with repeat x-rays, sooner with any acute concerns Orders: Orders OT Evaluation and Treatment 05/09/24 S52.502A - Unspecified fracture of the lower end of left radius, initial encounter for closed fracture XR wrist LT min 3V 05/09/24 M25.532 - Pain in left wrist Coding Level of Care Code Global (90515) Diagnoses Fracture of left distal radius S52.502A
[2024-05-09 15:06] VITALS: BMI 28.3
== END 2024-05-09 15:48 | disposition home or self-care (01) ==
DX: S52.502A Unspecified fracture of the lower end of left radius, initial encounter for closed fracture (principal)
CPT/HCPCS: 99024

== ENCOUNTER → 2024-05-09 14:28 | Outpatient (BNV) | payer OTHER, SELFPAY | PROVIDERS: Visit Provider Radiology Diagnostic Radiology | DX: M18.11 Unilateral primary osteoarthritis of first carpometacarpal joint, right hand (principal) | CPT/HCPCS: 73110 ==

== ENCOUNTER 2024-06-06 12:47 | Outpatient (AMB) | payer OTHER, SELFPAY ==
[2024-06-06 12:57] VITALS: BMI 28.3
--- NOTE | 2024-06-06 12:57 | MHC.OFFVIS ---
Vital Signs 06/06/24 12:57 Height 5 ft 5 in Weight 170 lb BMI 28.3 Intake Visit Reasons: PO LT distal radius/CTR 04/12/24 AR-w/xray Intake Note: Miguel is a 53 year old ambidextrous male who presents today post operatively s/p left Distal radius ORIF & left carpal tunnel release, DOS: 04/12/24 w/ Dr Guzmán. Patient continues to go to OT and finds this is helpful. He has been taking Ibuprofen PRN for pain with relief. Patient reports numbness on the basal joint of the left hand. Allergies clonazepam [CLONAZEPAM] Allergy (Unknown, Verified 05/09/24 15:05) UNK HPI HPI PO LT distal radius/CTR 04/12/24 AR-w/xray: Details: Patient is a 54-year-old male who presents for postoperative evaluation status post left distal radius ORIF and carpal tunnel release, DOS 04/12/[address] Guzmán. Today, the patient reports that he is feeling very well, his range of motion has improved very significantly with occupational therapy. The patient states that the numbness and tingling in his left hand has resolved in all spots except the base of the volar thumb. Patient reports that he is very satisfied with how his surgery and treatment have turned out so far. No other acute complaints or concerns at this time. [facility] Social History Patient Tobacco Use Status: Current everyday Tobacco user Tobacco use type: Cigarette Cigarettes Per Day: 3 Current occupational status: employed Current occupation: rt handed, [employer] and sales professional bilingual Review of Systems Const All systems reviewed & are unremarkable except as noted in HPI and below Physical Exam Vital Signs: BMI result Body Mass Index 28.3 Extrem Other: Patient is alert, oriented, and in no acute distress. Neuro: Normal sensation of the tips of all digits of the left hand at this time Vascular: Cap refill brisk Pain: Patient reports no tenderness to palpation about the left wrist or hand ROM: Patient is able to make a closed fist and extend all digits of the left hand without difficulty Flexion and extension of the left wrist greatly improved from last visit, able to do each motion to approximately 50-60 degrees Skin: Well approximated and well healed incision site noted on the volar aspect of the left wrist No evidence of infection General: No ecchymosis, erythema, or evidence of infection. Psych: Appears grossly normal Affect normal Attitude cooperative Assessment & Plan Assessment & Plan (1) Numbness and tingling in left hand: Code(s): R20.0 - Anesthesia of skin; R20.2 - Paresthesia of skin Category: Medical (2) Fracture of left distal radius: Code(s): S52.502A - Unspecified fracture of the lower end of left radius, initial encounter for closed fracture Category: Medical Plan 1. Left distal radius fracture status post ORIF 2. Left carpal tunnel syndrome status post carpal tunnel release DOS 04/12/2024 Patient appears to be recovering very well postoperatively Patient is educated about the typical recovery course At this time, patient is advised that he should continue on light duty at work, but he can begin to gradually ramp up his lifting to approximately 5-10 lb Patient is also advised he should continue working with occupational therapy to continue improving his range of motion and strength Patient was amenable to this plan Patient will follow-up in 3-4 weeks with repeat x-rays for anticipated final assessment, sooner with any acute concerns Coding Level of Care Code Global (28697) Diagnoses Numbness and tingling in left hand R20.0; R20.2 Fracture of left distal radius S52.502A
== END 2024-06-06 13:08 | disposition home or self-care (01) ==
LOC: HO.HOS 12:47
DX: R20.0 Anesthesia of skin (principal); R20.2 Paresthesia of skin; S52.502A Unspecified fracture of the lower end of left radius, initial encounter for closed fracture
CPT/HCPCS: 99024

== ENCOUNTER → 2024-06-06 12:47 | Outpatient (BNVA) | payer OTHER, SELFPAY | DX: Z86.69 Personal history of other diseases of the nervous system and sense organs (principal); S52.502D Unspecified fracture of the lower end of left radius, subsequent encounter for closed fracture with routine healing | CPT/HCPCS: 99212 ==

== ENCOUNTER 2024-07-02 09:27 | Outpatient (RCR) | payer OTHER, SELFPAY ==
--- NOTE | 2024-05-24 14:02 | MHC.OT.EP ---
[address] [phone] Occupational Therapy Plan of Care Patient Name: Miguel Gunderson Date of Evaluation: 05/24/24 Diagnosis: Distal (L) radius fx w/ORIF (L) carpal tunnel release Pain Location: Pain worsens with work activity and use. Pain distal radius and ulna Dull achy pain. Pronation and supination causes sharp pain. Pain Score: 4 Pain Scale Used: Numeric (0 - 10) Aggravating Factors: Pronation/supination - opening doors Work related tasks Alleviating Factors: Takes ibuprofen 600mg in AM 600mg at night Assessment: Frequency and Duration: The patient will be seen 2x a week for 6 weeks Short Term Goals: Patient will increase (L)wrist flexion AROM to 35* Patient will increase (L) wrist extension AROM to 25* Patient will report 2/10 pain with pronation and supination Correction Goals: Patient will be IND and compliant with HEP Patient will be IND and compliant with scar management within the home. Patient will increase (L) wrist flexion AROM to 45* Patient will increase (L) wrist extension to 35* Pt. will RTW FT Full duty SAFELY w/out restrictions Treatment Plan: Therapeutic Exercise Therapeutic Activity Home Exercise Program Splinting Patient Education Desensitization/Sensory Re-ed Edema Control ADL Training Ultrasound NMES Paraffin Fluidotherapy MHP Cold Packs Joint Mobilization Soft Tissue Mobilization Kinesiotaping 54 y/o M presented today with decreased wrist AROM, strength, and decreased overall function after a (L) distal radius fx ORIF and (L) carpal tunnel release on 04/12/2024 from a FOOSH injury he sustained at work. 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 Pt currently wearing a splint while doing activities but not to sleep or lounge around the house. Pt is forced IND with ADL/IADLs due to not having help within the home but reports difficulties most with pronation and supination movements (door nobs), opening jars, and washing the dishes. Pt will benefit from skilled OT services to increase ROM and strength in order to improve overall fucntion with ADL/IADL tasks. Electronically Signed By: Diane Donohue OT/s Please Sign and return to therapist. Thank you once again for your referral.
--- NOTE | 2024-07-02 10:02 | MHC.OT.DC ---
[address] [phone] F: [phone] Occupational Therapy Discharge Note Patient Name: Miguel Giftywolfgang Provider: Emanuel Antony Diagnosis: Distal (L) radius fx w/ORIF (L) carpal tunnel release Date of Surgery: 04/12/24 Date of Evaluation: 05/24/24 Date of Discharge: Treatments to Date: 11 Cancellations to Date: No Shows to Date: Discharge Status: Achieved Goals Improved Function Independent with HEP Discharge Summary: Wrist ext:45 flex: 50 (pre-tx) L: 45lbs R: 55 lbs Pt tolerated therapy well today. He reports only stiffness in the morning; but after its warmed up it feels better. Pt reports follow up w/ MD on 07/04 to which he is hoping to RTW full duty. Pt is in agreement w/ today's d/ charge from therapy. Electronically Signed By: Hailey ANDRE/Hung Reviewed/agree with student documentation: N/A Therapist: Hailey Zelaya OTR/Hung Please Sign and return to therapist, thank you for your referral.
== END 2024-07-02 10:03 | disposition home or self-care (01) ==
LOC: HO.OT 09:27
DX: S52.502D Unspecified fracture of the lower end of left radius, subsequent encounter for closed fracture with routine healing (principal)
CPT/HCPCS: 97110; 97140; 97165; 97535

== ENCOUNTER 2024-07-04 14:51 | Outpatient (AMB) | payer OTHER, SELFPAY ==
--- NOTE | 2024-07-04 15:06 | MHC.OFFVIS ---
Intake Visit Reasons: PO LT distal radius/CTR 04/12/24 AR-ROM check Intake Note: Miguel is a 53 year old ambidextrous male who presents today post operatively s/p left Distal radius ORIF & left carpal tunnel release, DOS: 04/12/24 w/ Dr Guzmán, Pt states he is overall feeling well and has been slowly working on his weight limit increase. Pt denies any numbness,tingling, or locking of his fingers. Allergies clonazepam [CLONAZEPAM] Allergy (Unknown, Verified 07/04/24 15:07) UNK HPI HPI PO LT distal radius/CTR 04/12/24 AR-ROM check: Details: Patient is a 54-year-old male who presents for postoperative evaluation status post left distal radius ORIF and carpal tunnel release, DOS 04/12/[address] Guzmán. Today, the patient reports that he is feeling very well, his range of motion has improved very significantly with occupational therapy. The patient states that the numbness and tingling in his left hand has resolved in all spots except the base of the volar thumb. Patient reports that he is very satisfied with how his surgery and treatment have turned out so far. Patient inquires if he can return to full activity as tolerated No other acute complaints or concerns at this time. [facility] Social History Patient Tobacco Use Status: Current everyday Tobacco user Tobacco use type: Cigarette Cigarettes Per Day: 3 Current occupational status: employed Current occupation: rt handed, [employer] sales consultant Review of Systems Const All systems reviewed & are unremarkable except as noted in HPI and below Physical Exam Extrem Other: Patient is alert, oriented, and in no acute distress. Neuro: Normal sensation of the tips of all digits of the left hand at this time Vascular: Cap refill brisk Pain: Patient reports no tenderness to palpation about the left wrist or hand ROM: Patient is able to make a closed fist and extend all digits of the left hand without difficulty Flexion and extension of the left wrist greatly improved from last visit, able to do each motion to approximately 50-60 degrees Skin: Well approximated and well healed incision site noted on the volar aspect of the left wrist No evidence of infection General: No ecchymosis, erythema, or evidence of infection. Psych: Appears grossly normal Affect normal Attitude cooperative Assessment & Plan Assessment & Plan (1) Numbness and tingling in left hand: Code(s): R20.0 - Anesthesia of skin; R20.2 - Paresthesia of skin Category: Medical (2) Fracture of left distal radius: Code(s): S52.502A - Unspecified fracture of the lower end of left radius, initial encounter for closed fracture Category: Medical Plan 1. Left distal radius fracture status post ORIF 2. Left carpal tunnel syndrome status post carpal tunnel release DOS 04/12/2024 Patient appears to be recovering very well postoperatively Patient is educated about the typical recovery course At this time, patient is cleared to gradually ramp up to normal activity, but is advised to do this over the course of the next few weeks, and to not attempt any very heavy lifting until he does so Patient cleared for discharge by occupational therapy earlier this week Patient was amenable to this plan Patient will follow-up as needed with any acute concerns Coding Level of Care Code Global (47229) Diagnoses Numbness and tingling in left hand R20.0; R20.2 Fracture of left distal radius S52.502A
== END 2024-07-04 15:41 | disposition home or self-care (01) ==
DX: R20.0 Anesthesia of skin (principal); R20.2 Paresthesia of skin; S52.502A Unspecified fracture of the lower end of left radius, initial encounter for closed fracture
CPT/HCPCS: 99024

== ENCOUNTER → 2024-07-04 14:51 | Outpatient (BNVA) | payer OTHER, SELFPAY | DX: S52.502D Unspecified fracture of the lower end of left radius, subsequent encounter for closed fracture with routine healing (principal); R20.0 Anesthesia of skin; R20.2 Paresthesia of skin; X58.XXXD Exposure to other specified factors, subsequent encounter; Z98.890 Other specified postprocedural states | CPT/HCPCS: 99212 ==